=== PATIENT | female | born 2000 | race Two or more races ===

== ENCOUNTER 2024-07-24 15:13 | Outpatient (CLI) | payer OTHER ==
[2024-07-24 16:23] LABS: Hepatitis B Surface Antibody Positive (Negative); Hepatitis B Surface Antigen Negative (Negative)
== END 2024-07-24 17:00 | disposition home or self-care (01) ==
LOC: LAB 15:13
PROVIDERS: ATTEND Nurse Practitioner
DX: Z01.89 Encounter for other specified special examinations (principal); Z77.21 Contact with and (suspected) exposure to potentially hazardous body fluids; Z20.6 Contact with and (suspected) exposure to human immunodeficiency virus [HIV]; Z20.5 Contact with and (suspected) exposure to viral hepatitis
CPT/HCPCS: 36415; 86703; 86706; 86803; 87340